=== PATIENT | male | born 1950 | race Caucasian/White ===

== ENCOUNTER 2023-08-11 00:03 | Inpatient (IN) | payer MEDICARE ==
[~2023-08-11] VITALS: Ht 177.8 cm; Wt 70.3 kg
[2023-08-11] MEDS ORDERED: MAG HYDROX/AL HYDROX/SIMETH 30 ML LIQUID UDC PO PRN (02:45)
[2023-08-11] MEDS ORDERED: LORAZEPAM 0.5 MG TABLET PO PRN (02:45)
[2023-08-11] MEDS ORDERED: MAGNESIUM HYDROXIDE 30 ML LIQUID UDC PO PRN (02:45)
[2023-08-11] MEDS ORDERED: CALC668T PO (03:40)
[2023-08-11] MEDS ORDERED: TAMS-3 PO (03:40)
[2023-08-11] MEDS ORDERED: LEVO100T10 PO (03:40)
[2023-08-11] MEDS ORDERED: ATOR40TA PO (03:40)
[2023-08-11] MEDS ORDERED: QUET25TA PO (03:40)
[2023-08-11] MEDS ORDERED: BISA-79 PO (03:40)
[2023-08-11] MEDS ORDERED: PANT40TA49 PO (03:40)
[2023-08-11] MEDS ORDERED: LEVE500T20 PO (03:40)
[2023-08-11 04:24] VITALS: BP 158/89; TEMP 97.9; O2SAT 97
[2023-08-11 07:46] VITALS: BP 148/82; TEMP 98.7; O2SAT 99
[2023-08-11 10:08] LABS: THYROID STIMULATING HORMONE 7.372 mIU/mL (0.358-3.740)
[2023-08-11] MEDS ORDERED: CALC667T6 PO (10:15)
[2023-08-11 10:36] LABS: *BILIRUBIN,URIN NEGATIVE (NEGATIVE); *BLOOD, URINE 2+ (NEGATIVE); *CLARITY,URINE CLEAR (CLEAR); *COLOR,URINE YELLOW (YELLOW); *KETONES,URINE NEGATIVE (NEGATIVE); *PROTEIN,URINE NEGATIVE (NEGATIVE); *UROBILINOGEN,URINE 0.2 E.U./dl (NORMAL); LEUKOCYTE ESTERASE ,URINE NEGATIVE (NEGATIVE); NITRITE, URINE NEGATIVE (NEGATIVE); UGLUCOSE NEGATIVE (NEGATIVE)
[2023-08-11] MEDS: levETIRAcetam 500 MG TABLET PO SCH (10:56)
[2023-08-11 11:52] LABS: BACTERIA,URINE FEW /HPF (NONE SEEN); SQUAMOUS EPITHELIAL CELL,UR FEW /HPF (NONE SEEN); WBC,URINE 0-3 /HPF (0-3); YEAST,URINE RARE /HPF (NONE SEEN)
[2023-08-11] MEDS: CALCIUM ACETATE 667 MG CAP/TAB PO SCH (13:10)
[2023-08-11] MEDS: DIVALPROEX 250 MG TABLET.DR PO SCH (13:10)
[2023-08-11 16:08] VITALS: BP 133/73; TEMP 98.5; O2SAT 98
[2023-08-11 19:48] VITALS: BP 153/80; TEMP 98.2; O2SAT 95
[2023-08-11] MEDS: TAMSULOSIN HCL 0.4 MG CAP.SR.24H PO SCH (20:31)
[2023-08-11] MEDS: OLANZAPINE 2.5 MG TABLET PO SCH (20:32)
[2023-08-11] MEDS: ATORVASTATIN 40 MG TABLET PO SCH (20:32)
[2023-08-12] MEDS: LEVOTHYROXINE SODIUM 100 MCG TABLET PO SCH (06:05)
[2023-08-12] MEDS: PANTOPRAZOLE SODIUM 40 MG TABLET.DR PO SCH (06:05)
[2023-08-12 07:33] LABS: BASOPHILS % (AUTO) 0.4 % (0.0-2.0); HEMATOCRIT 43.8 % (36.7-47.1); LYMPHOCYTES # (AUTO) 1.8 K/uL (0.8-4.8); LYMPHOCYTES % (AUTO) 23.9 % (20.5-51.5); MEAN CORPUSCULAR HEMOGLOBIN 31.3 uug (23.8-33.4); MEAN CORPUSCULAR HGB CONC 34 g/dL (32.5-36.3); MEAN CORPUSCULAR VOLUME 91.3 fL (73.0-96.2); MONOCYTES # (AUTO) 0.5 K/uL (0.1-1.30); MONOCYTES % (AUTO) 6.2 % (0.0-11.0); NEUTROPHILS # (AUTO) 5.1 K/uL (1.8-8.9); NEUTROPHILS % (AUTO) 69.5 % (38.5-71.5); PLATELET COUNT (AUTO) 202 K/uL (152-348); RED CELL DISTRIBUTION WIDTH 12.9 % (12.1-16.2); WHITE BLOOD COUNT (AUTO) 7.3 K/uL (3.6-10.2)
[2023-08-12 07:41] VITALS: BP 134/84; TEMP 98.2; O2SAT 98
[2023-08-12 07:42] LABS: CALCIUM 9.1 mg/dL (8.5-10.1); CARBON DIOXIDE 28 mmol/L (21-32); CHLORIDE 109 mmol/L (98-107); GLUCOSE 168 mg/dL (74-106); GLUCOSE FASTING 168 mg/dL (70-115); POTASSIUM 4.2 mmol/L (3.5-5.1); SODIUM SERUM 149 mmol/L (136-145); UREA NITROGEN, BLOOD 30 mg/dL (7-18)
[2023-08-12 07:48] LABS: CHOLESTEROL 145 mg/dL (<200); HDL CHOLESTEROL 57 mg/dL (40-60); MAGNESIUM 2.2 mg/dL (1.8-2.4); PHOSPHOROUS 4.3 mg/dL (2.5-4.9); TRIGLYCERIDES 131 MG/DL (30-150)
[2023-08-12 07:59] LABS: DIFFERENTIAL COMMENT 1
[2023-08-12] MEDS: OLANZAPINE 10 MG VIAL IM ONE (11:51)
[2023-08-12] MEDS: DIVALPROEX 250 MG TABLET.DR PO SCH (13:27)
[2023-08-12 16:23] VITALS: BP 131/78; TEMP 98.2; O2SAT 98
[2023-08-12] MEDS: LORAZEPAM 1 MG TABLET PO PRN (16:51)
[2023-08-12 19:50] VITALS: BP 126/76; TEMP 98.1; O2SAT 96
[2023-08-13] MEDS: LEVOTHYROXINE SODIUM 112 MCG TABLET PO SCH (06:12)
[2023-08-13 07:56] VITALS: BP 124/77; TEMP 98; O2SAT 98
[2023-08-13] MEDS: OLANZAPINE 2.5 MG TABLET PO SCH (11:19)
[2023-08-13] MEDS: OLANZAPINE 10 MG VIAL IM STA (17:06)
[2023-08-13 20:00] VITALS: BP 125/77; TEMP 98; O2SAT 95
[2023-08-14 08:00] VITALS: BP 140/75; TEMP 98; O2SAT 99
[2023-08-14 08:00] LABS: BASOPHILS % (AUTO) 0.5 % (0.0-2.0); EOSINOPHILS % (AUTO) 0.1 % (0.0-7.0); HEMATOCRIT 39.7 % (36.7-47.1); HEMOGLOBIN 13.7 g/dL (12.5-16.3); LYMPHOCYTES # (AUTO) 0.8 K/uL (0.8-4.8); LYMPHOCYTES % (AUTO) 13.9 % (20.5-51.5); MEAN CORPUSCULAR HEMOGLOBIN 31.2 uug (23.8-33.4); MEAN CORPUSCULAR HGB CONC 35 g/dL (32.5-36.3); MEAN CORPUSCULAR VOLUME 90.4 fL (73.0-96.2); MONOCYTES # (AUTO) 0.4 K/uL (0.1-1.30); MONOCYTES % (AUTO) 6.9 % (0.0-11.0); NEUTROPHILS # (AUTO) 4.3 K/uL (1.8-8.9); NEUTROPHILS % (AUTO) 78.6 % (38.5-71.5); PLATELET COUNT (AUTO) 157 K/uL (152-348); RED BLOOD CELL COUNT(AUTO) 4.39 MIL/uL (4.06-5.63); RED CELL DISTRIBUTION WIDTH 13.1 % (12.1-16.2); WHITE BLOOD COUNT (AUTO) 5.5 K/uL (3.6-10.2)
[2023-08-14 08:03] LABS: DIFFERENTIAL COMMENT 1
[2023-08-14 08:20] LABS: ALANINE AMINOTRANSFERASE 13 U/L (16-63); ALBUMIN 3.5 g/dL (3.4-5.0); ALKALINE PHOSPHATASE 96 U/L (50-136); ASPARTATE AMINOTRANSFERASE 8 U/L (15-37); BILIRUBIN,TOTAL 0.5 mg/dL (0.2-1.0); CALCIUM 8.4 mg/dL (8.5-10.1); CARBON DIOXIDE 28 mmol/L (21-32); CHLORIDE 110 mmol/L (98-107); CREATINE KINASE, TOTAL 211 U/L (39-308); CREATININE 1.9 mg/dL (0.6-1.3); GLUCOSE 110 mg/dL (74-106); MAGNESIUM 2.4 mg/dL (1.8-2.4); PHOSPHOROUS 4.7 mg/dL (2.5-4.9); SODIUM SERUM 148 mmol/L (136-145); UREA NITROGEN, BLOOD 35 mg/dL (7-18)
[2023-08-14 09:34] VITALS: BP 145/79; TEMP 98; O2SAT 99
[2023-08-14 15:19] VITALS: BP 140/75; TEMP 98; O2SAT 99
[2023-08-14] MEDS: OLANZAPINE 5 MG TABLET PO SCH (20:37)
[2023-08-14 21:32] VITALS: BP 139/74; TEMP 98.2
[2023-08-14 21:40] VITALS: O2SAT 97
[2023-08-15 07:18] VITALS: BP 132/90; TEMP 98; O2SAT 98
[2023-08-15 08:09] LABS: PTH, INTACT 9 pg/mL (15-65)
[2023-08-15] MEDS: OLANZAPINE 5 MG TABLET PO SCH (08:27)
[2023-08-15 10:07] LABS: A/G RATIO 1.2 (0.7-1.7); ALBUMIN 3.4 g/dL (2.9-4.4); ALPHA-1-GLOBULIN 0.1 g/dL (0.0-0.4); ALPHA-2-GLOBULIN 0.8 g/dL (0.4-1.0); GLOBULIN, TOTAL 2.9 g/dL (2.2-3.9); M-SPIKE Not Observed g/dL (Not Observed)
[2023-08-15 16:02] VITALS: BP 126/89; TEMP 98; O2SAT 98
[2023-08-15 20:00] VITALS: BP 144/81; TEMP 97.8; O2SAT 97
[2023-08-16 09:06] VITALS: BP 143/79; TEMP 98; O2SAT 98
[2023-08-16 15:03] VITALS: BP 147/46; TEMP 98; O2SAT 98
[2023-08-16 20:00] VITALS: BP 122/75; TEMP 97.8; O2SAT 97
[2023-08-16] MEDS: OLANZAPINE 5 MG TABLET PO SCH (20:14)
[2023-08-16] MEDS: TEMAZEPAM 7.5 MG CAPSULE PO PRN (23:47)
[2023-08-17 07:56] VITALS: BP 145/81; TEMP 98; O2SAT 98
[2023-08-17 08:26] LABS: ALANINE AMINOTRANSFERASE 19 U/L (16-63); ALBUMIN 4.1 g/dL (3.4-5.0); ALKALINE PHOSPHATASE 109 U/L (50-136); ASPARTATE AMINOTRANSFERASE 6 U/L (15-37); BILIRUBIN,TOTAL 0.6 mg/dL (0.2-1.0); CALCIUM 8.6 mg/dL (8.5-10.1); CARBON DIOXIDE 29 mmol/L (21-32); CHLORIDE 106 mmol/L (98-107); CREATININE 2.1 mg/dL (0.6-1.3); GLUCOSE 139 mg/dL (74-106); POTASSIUM 4.2 mmol/L (3.5-5.1); SODIUM SERUM 146 mmol/L (136-145); TOTAL PROTEIN, SERUM 8.2 g/dL (6.4-8.2); UREA NITROGEN, BLOOD 35 mg/dL (7-18); VALPROIC ACID 36 ug/mL (50-100)
[2023-08-17] MEDS ORDERED: DIVALPROEX 250 MG TABLET.DR PO SCH (13:00)
[2023-08-17] MEDS: DIVALPROEX 125 MG TABLET.DR PO SCH (13:26)
[2023-08-17 15:11] VITALS: BP 160/66; TEMP 98; O2SAT 98
[2023-08-17 20:00] VITALS: BP 140/78; TEMP 98.1; O2SAT 95
[2023-08-18 07:57] VITALS: BP 121/83; TEMP 97.8; O2SAT 99
[2023-08-18 16:14] VITALS: BP 169/85; TEMP 97.9; O2SAT 98
[2023-08-18 20:22] VITALS: BP 143/85; TEMP 98.2; O2SAT 99
[2023-08-19 09:23] VITALS: BP 140/97; TEMP 98.1; O2SAT 99
[2023-08-19 16:06] VITALS: BP 130/77; TEMP 98; O2SAT 99
[2023-08-19 20:00] VITALS: BP 146/74; TEMP 97.2; O2SAT 98
[2023-08-19] MEDS: OLANZAPINE 5 MG TABLET PO SCH (20:47)
[2023-08-20] MEDS: ACETAMINOPHEN 325 MG TABLET PO PRN (02:15)
[2023-08-20 08:24] VITALS: BP 120/75; TEMP 98.4; O2SAT 99
[2023-08-20 16:36] VITALS: BP 100/82; TEMP 98.2; O2SAT 98
[2023-08-20] MEDS: BENZTROPINE MESYLATE 0.5 MG TABLET PO SCH (16:49)
[2023-08-20] MEDS: DIVALPROEX 500 MG TABLET.DR PO SCH (16:50)
[2023-08-20] MEDS ORDERED: DIVALPROEX 125 MG TABLET.DR PO SCH (17:00)
[2023-08-20 20:00] VITALS: BP 136/83; TEMP 97.9; O2SAT 97
[2023-08-21 07:52] VITALS: BP 114/86; TEMP 98.2; O2SAT 94
[2023-08-21] MEDS: OLANZAPINE ZYDIS 5 MG TAB.RAPDIS PO PRN (14:32)
[2023-08-21 15:49] VITALS: BP 136/69; TEMP 98.2; O2SAT 96
[2023-08-21 20:00] VITALS: BP 137/76; TEMP 97.8; O2SAT 95
[2023-08-22 08:15] VITALS: BP 143/82; TEMP 98.2; O2SAT 96
[2023-08-22] MEDS: OLANZAPINE ZYDIS 5 MG TAB.RAPDIS PO ONE (11:59)
[2023-08-22 15:46] VITALS: BP 153/81; TEMP 98.2; O2SAT 96
[2023-08-22 19:52] VITALS: BP 149/86; TEMP 98.1; O2SAT 96
[2023-08-23 08:02] VITALS: BP 143/82; TEMP 98; O2SAT 98
[2023-08-23] MEDS: OLANZAPINE 5 MG TABLET PO SCH (08:55)
== END 2023-08-23 12:00 | DRG 885 ==
LOC: GPS 01:46
PROVIDERS: ADMIT Psychiatry & Neurology Psychosomatic Medicine; ATTEND Internal Medicine
DX: F29 Unspecified psychosis not due to a substance or known physiological condition (principal); N18.9 Chronic kidney disease, unspecified; N17.9 Acute kidney failure, unspecified; G93.41 Metabolic encephalopathy; G93.40 Encephalopathy, unspecified; E87.0 Hyperosmolality and hypernatremia; E03.9 Hypothyroidism, unspecified; F31.9 Bipolar disorder, unspecified; F25.9 Schizoaffective disorder, unspecified; L60.3 Nail dystrophy; E78.5 Hyperlipidemia, unspecified; N40.0 Benign prostatic hyperplasia without lower urinary tract symptoms; G40.909 Epilepsy, unspecified, not intractable, without status epilepticus; E86.1 Hypovolemia; Z63.5 Disruption of family by separation and divorce; Z66 Do not resuscitate; Z79.899 Other long term (current) drug therapy; Z86.73 Personal history of transient ischemic attack (TIA), and cerebral infarction without residual deficits; Z91.51 Personal history of suicidal behavior; Z87.891 Personal history of nicotine dependence; F19.21 Other psychoactive substance dependence, in remission
CPT/HCPCS: 36415; 76770; 80164; 83735; 83970; 84100; 84155; 84165; 84443; 85025; J2358; J3490